=== PATIENT | male | born 1980 | race Caucasian/White ===

== ENCOUNTER → 2016-12-22 | Outpatient (CLI) | payer OTHER ==
[~2016-12-22] MED LIST: ISOVUE-370 76% 100ML VIAL (Q9967) As Ordered ONE
--- NOTE | 2016-12-23 08:20 | REP ---
CT of the chest with IV contrast: There are no comparison studies. There are no infiltrates or effusions. No masses are not. The lung garg otherwise clear. There is no mediastinal or hilar adenopathy. There is no axillary adenopathy. The thoracic aorta is unremarkable. Cardiac size is normal. The visualized upper abdominal contents are unremarkable except for a small renal cortical cyst at the left renal upper pole. Impression: Essentially negative CT scan of the chest. Left renal upper pole cyst is incidentally noted. Signed by Janes Gonzalez MD 12/23/2016 08:12 A
== END ==
LOC: M RAD 17:08
PROVIDERS: ATTEND Family Medicine
DX: R05 Cough (principal)

== ENCOUNTER → 2017-11-22 | Outpatient (CLI) | payer OTHER | LOC: M PAIN 14:45 | DX: M51.26 Other intervertebral disc displacement, lumbar region (principal); R25.2 Cramp and spasm; Z79.899 Other long term (current) drug therapy | CPT/HCPCS: G0463 ==